=== PATIENT | female | born 1985 | race Caucasian/White ===

== ENCOUNTER 2018-05-28 15:31 | Day surgery (SDC) | payer OTHER ==
[~2018-05-28] VITALS: Ht 165.1 cm; Wt 59.0 kg
--- NOTE | ~2018-05-28 | OR ---
[facility] [address] [place], [place] [address] Draft DATE OF OPERATION: 05/28/2018 SURGEON: Vale Hodges MD PREOPERATIVE DIAGNOSES: Pelvic pain, ectopic . POSTOPERATIVE DIAGNOSES: Pelvic pain, ectopic with ruptured left ovarian cyst. PROCEDURES: Laparoscopy, lysis of adhesions, drainage of left ovarian cyst, salpingostomy on the right. ANESTHESIA: General ET. ESTIMATED BLOOD LOSS: Approximately 150 mL combined with what was already present in the abdomen. DRAINS: Velásquez catheter intraoperatively. INDICATIONS AND FINDINGS: The patient is a 32-year-old female, 5, para 1, and AB 3, with an LMP of 1223, which puts her at 7 weeks 4 days, who was seen in the office with a complaint of acute onset of left lower quadrant pain. She has had some intermittent spotting during this . No real pain until today. Quant HCG was done, which was 2600. Ultrasound showed some free fluid in the abdomen and an empty uterus, though a thickened endometrium. There was absolutely no gestational sac. Because of the combination of symptoms, it was felt that she likely had an ectopic and options were discussed including use of methotrexate or proceeding with laparoscopy. At the conclusion of the discussion, she wished to proceed with laparoscopy. At the time of surgery, exam under anesthesia revealed a top-normal size uterus, which was soft. No adnexal masses were appreciated. At the time of laparoscopy, there was a moderate amount of blood in the abdomen. There were severe adhesions. The omentum was completely adherent across the anterior cul-de-sac. There was a ruptured left ovarian cyst, which appeared to be hemorrhagic. There was a tiny area of endometriosis on the left pelvic sidewall. There were adhesions of the ovary on the left to the sigmoid. There was also adhesions of the ovary on the right to the sigmoid. The ectopic PATIENT NAME: JONATHAN PATTON OPERATIVE REPORT DATE OF : 85 REPORT #: [id number] PHYSICIAN: VALE HODGES MD PCP: TOMAS CORONADO MD REPORT IS CONFIDENTIAL AND NOT TO BE RELEASED WITHOUT AUTHORIZATION [facility] [address] [place], [place] [address] Draft appeared to be in the distal half of the right tube. Both tubes appeared to have blunting. PROCEDURE IN DETAIL: The patient was prepped and draped in the dorsal lithotomy position. An open-sided speculum was placed. The anterior lip of the cervix was visualized and grasped with a single-tooth tenaculum. A Mitali cannula was then placed and the speculum removed. Attention was directed above. The infraumbilical area was injected with 0.5% Marcaine plain. An incision was made with a knife and then each layer was serially elevated and incised until the fascia was opened and identified. The peritoneum was opened bluntly. The Yumiko cannula was then placed and tied into place after inflating the balloon. Placement of the scope confirmed proper positioning. CO2 was then introduced into the abdomen. The bleeding and the adhesions were immediately noted. Secondary ports were placed slightly inferior to the umbilicus laterally. Each of these areas were transilluminated, injected with the Marcaine. Incision made with a knife and the trocars placed under direct vision. Initially, the adhesions were taken down anteriorly and this was done using a LigaSure [place] device. This allowed the omentum to come off the anterior pelvis and allow for further evaluation of the actual pelvis. The patient's left ovary was identified. There was evidence of a ruptured cyst on its surface. The tube on the patient's left was kinked and blunted, but it otherwise appeared fairly normal. The pelvis was thoroughly irrigated and the blood removed as much as possible. Attention was then directed to the patient's right side and the adhesions of the bowel to the tube and ovary were identified and these were incised using scissors without any cautery given the proximity of the bowel. This allowed the bowel to come off the ovary and the tube. At that point, it could be seen that the distal half of the patient's right tube was edematous and swollen and purple with likely retained products. As this was grasped and elevated into view, large amount of tissue and bleeding was extruded through the end. This tissue could not be separately grasped and removed. The fimbriated end was then incised using the spatula tip cautery as well as the scissors with cautery and the tube irrigated. Following this, the tube itself appeared to be fairly normal, though it was still blunted and adherent to the ovary. There were few adhesions in the posterior cul-de-sac, but these were not lysed at this time. The cyst on the patient's left ovary was drained further and the base treated with cautery to aid in hemostasis. The abdomen was then copiously irrigated and inspected and there did not appear to be any evidence of active bleeding, but the surface of the left ovary was broth. Following this, Evicel was doubled over the left ovary as well as the site of the right salpingostomy. Preparations were then made for closure. The instruments were removed from the abdomen after allowing as much CO2 as possible to escape. The fascia was re-identified and closed with a running suture of 0 Vicryl. Stay sutures were tied as well. The skin incisions were closed with subcuticular sutures of 3-0 Vicryl Rapide. The remaining Evicel was used on the incisions in the subcu portion. The instruments were removed from the vagina and the PATIENT NAME: JONATHAN PATTON OPERATIVE REPORT DATE OF : 85 REPORT #: [id number] PHYSICIAN: VALE HODGES MD PCP: TOMAS CORONADO MD REPORT IS CONFIDENTIAL AND NOT TO BE RELEASED WITHOUT AUTHORIZATION [facility] [address] [facility] [place], [place] [address] Draft cervix was visualized and there was no evidence of ongoing bleeding. The Velásquez catheter was also removed at the end of surgery. All sponge and needle counts were correct. She tolerated the procedure well and was taken to the recovery room in good condition. Vale Hodges MD PJW/MODL /[id number] Copies: ~ PATIENT NAME: JONATHAN PATTON OPERATIVE REPORT DATE OF : 85 REPORT #: [id number] PHYSICIAN: VALE HODGES MD PCP: TOMAS CORONADO MD REPORT IS CONFIDENTIAL AND NOT TO BE RELEASED WITHOUT AUTHORIZATION
[~2018-05-28 15:31] MED LIST: PRENATAL TABLE1 EAC1 PO
[2018-05-28] MEDS ORDERED: PROGESTERONE200 MG PO (15:52)
--- NOTE | 2018-05-28 18:40 | NUR ---
05/28/18 184 Crescencio Moran 1826 PT ARRIVED TO PACU, AWAKENS TO VOICE. PT DENIES PAIN AND NAUSEA. 02 VIA MASK AT 10L. VITALS STABLE. REPORT RECV'D FROM FABIO BURRIS. WILL CONTINUE TO MONITOR. 183 PT RESTING. VITALS STABLE. DENIES PAIN AND NAUSEA. BEAR HUGGER AND WARM BLANKETS IN PLACE.
--- NOTE | 2018-05-28 19:10 | NUR ---
PT ARRIVED TO ROOM 103 VIA STRETCHER, TRANSFERED TO BED, REPORT RECEIVED FROM GERDA RN, PT ALERT AND ORIENTED, IV PATENT, SITE INTACT, INFUSING AT TKO, PT DENIES N/V OR NEED FOR ADDITIONAL PAIN MED, BANDAIDES TO ABDOMINAL SCOPE SITES WITH MINIMAL DRAINAGE, SCANT MEDIUM RED VAGINAL DRAINAGE, FAMILY AT BEDSIDE AND SUPPORTIVE.
--- NOTE | 2018-05-28 19:50 | NUR ---
PT TOLERATING PO AT THIS TIME WITHOUT N/V, IVF STOPPED AND CHANGED TO SL, SITE FLUSES WELL. PT DESIRES TO EMPTY BLADDER, ASSISTED UP TO BR TO VOID, VOIDED 200ML, LIGHT VAGINAL BLEEDING NOTED, PERICARE DONE, SOME REPORTED DIZZINESS WITH INITAL STANDING AND AMBULATING, RN AND AT SIDE, BACK TO BED, DR SOLANO INTO DISCUSS SURGICAL FINDINGS AND TO ANSWER PT AND FAMILY QUESTIONS.
--- NOTE | 2018-05-28 20:15 | NUR ---
DISCHARGE PRESCRIPTIONS GIVEN TO FAMILY TO FILL TONIGHT BEFORE RETAIL PHARMACY CLOSES, IN ANTICIPATION OF POSSIBLE DISCHARGE TONIGHT.
--- NOTE | 2018-05-28 21:01 | NUR ---
PT ASSISTED UP TO BR TO VOID, VOIDED 400ML VAGINAL BLEEDING REMAINS LIGHT, PT DENIES DIZZINESS WITH AMBULATION, BACK TO BED, SCDS PLACED ON PT .
--- NOTE | 2018-05-28 21:01 | NUR ---
PT REQUESTING PAIN MED FOR ABDOMINAL PAIN 5/10, WITH LEFT SIDE OF ABDOMINAL PAIN WORSE THAN THE RIGHT, SCOPE BANDAIDES REMAIN WITH SCANT OLD DRAINAGE, VAGINAL DRAINAGE LIGHT. PT MEDICATED WITH PERCOCET 1 TABLET, PT TOLERATING PO AND CRACKERS.
--- NOTE | 2018-05-28 22:30 | NUR ---
PT REQUESTING ADDITIONAL PAIN MED, RT MOTRIN GIVEN ALSO AN ADDITIONAL PERCOCET GIVEN FOR ABDOMINAL PAIN, BANDAIDES AT SCOPE SITES AND VAGINAL BLEEDING REMAINS UNCHANGED. PT UP TO BR TO VOID, GAIT STEADY WITHOUT C/O DIZZINESS. BACK TO BED, REQUEST SOUP, GIVEN WITH CRACKERS, RESTING AT BEDSIDE.
--- NOTE | 2018-05-28 22:50 | NUR ---
PT REPORTS SHE WOULD LIKE TO STAY THE NIGHT AT HOSPITAL. STATES SHE WOULD FEEL MORE COMFORTABLE BEING MONITORED OVER NIGHT. SUPPORT GIVEN.
--- NOTE | 2018-05-29 00:05 | NUR ---
VS STABLE, ASSESSMENT WNL, BANDAIDS WITH NO FURTHER DRAINAGE, SCDS IN PLACE, PT ABLE TO EAT ABOUT HALF OF HER CHICKEN NOODLE SOUP, NO N/V.
--- NOTE | 2018-05-29 01:49 | NUR ---
RN CALLED TO ROOM TO ASSIST GETTING UP TO GO TO BR, PT REQUESTING PAIN MED, MEDICATED PER ORDER WITH 2 PERCOCET FOR ABDOMINAL PAIN /, GAIT STEADY, VOIDED 900ML, VAGINAL BLEEDING LIGHT, BACK TO BED, WITHOUT FURTHER REQUEST.
--- NOTE | 2018-05-29 04:02 | NUR ---
Pt up to bathroom to void 1000ml. Scant amt of vag bleeding noted on pad. VS done. Pt back to bed and SCD replaced. Fresh water given. Denies need of any pain meds at this time. Pt states that she will try to get more sleep.
--- NOTE | 2018-05-29 06:23 | NUR ---
PT RESTING QUIETLY, AWAKE, REQUESTING PAIN MED, MED WITH 2 PERCOCET AND RT MOTRIN, FOR PAIN 4/10, UP TO BR TO VOID, GAIT STEADY
--- NOTE | 2018-05-29 07:23 | NUR ---
Pt sleeping in no apparent distress. Advised to have her call me when she awakens.
--- NOTE | 2018-05-29 07:52 | NUR ---
pt denies pain at this time. SL dc'd from rt AC. Cath intact. No s/s of infection noted. Pressure applied. Incisional wounds covered with bandages. small amount of old, dried blood noted. No active bleeding noted. No vaginal bleeding noted. Pt. states that she is voiding without difficulty. She is prepared to get up and ready for dc. Pt does not wish to order brkfast before leaving.
== END 2018-05-29 08:30 | disposition home or self-care (01) ==
LOC: DS 15:31 → FBC 19:10 → DS 05-29 08:30
PROVIDERS: Obstetrics & Gynecology
PROC: 0U914ZZ Drainage of Left Ovary, Percutaneous Endoscopic Approach (ICD-10-PCS; 2018-05-28)
PROC: 10T24ZZ Resection of Products of Conception, Ectopic, Percutaneous Endoscopic Approach (ICD-10-PCS; principal; 2018-05-28 16:30)
DX: O00.101 Right tubal pregnancy without intrauterine pregnancy (principal); N83.202 Unspecified ovarian cyst, left side; Z88.0 Allergy status to penicillin; Z79.899 Other long term (current) drug therapy
CPT/HCPCS: 00840; 80053; 85025; J0330; J1100; J1885; J2250; J2405; J2704; J2765; J3010; J7120

== ENCOUNTER 2019-10-15 15:29 | Inpatient (IN) | payer OTHER ==
[~2019-10-15] VITALS: Ht 165.1 cm; Wt 73.0 kg
--- NOTE | ~2019-10-15 | OR ---
[facility] [address] [place], [place] [address] Draft DATE OF OPERATION: 10/16/2019 SURGEON: Vale Hodges MD PREOPERATIVE DIAGNOSIS: hemorrhage. POSTOPERATIVE DIAGNOSES: hemorrhage, uterine atony. PROCEDURE: Exam under anesthesia, dilation and curettage, attempted Bakri placement. ANESTHESIA: Epidural with IV sedation. ESTIMATED BLOOD LOSS: 300 mL in the OR. DRAINS: Velásquez catheter. INDICATIONS AND FINDINGS: The patient is a 34-year-old female, 6, para 1, SAB 3, ectopic 1, who was delivered at 40 weeks this afternoon with delivery of a little boy with Apgars of 8 and 9 and weight of 8 pounds 9 ounces. There was a moderate shoulder dystocia. However after delivery and repair of the laceration, she had continued bleeding, which did not respond to multiple uterotonics. At that point, it was felt that she needed to undergo further treatment. At the time of her surgery, the D and C revealed a tiny fragment of possible placental tissue. No other causes for the bleeding were found. DESCRIPTION OF PROCEDURE: The patient was prepped and draped in the dorsal lithotomy position. The vagina was carefully evaluated and there was no evidence of any missed lacerations. The cervix was carefully evaluated as well and there was no evidence of any lacerations of the cervix. The anterior lip of the cervix was visualized and grasped with a ring forceps. A banjo curette was then introduced into the uterus and the uterus curetted with the finding of a single small focus of possible placental type tissue. At this point, she was bleeding even more. The D and C was abandoned and the decision was made to try to place the Bakri balloon. This was grasped with ring forceps at the tip and attempted to be PATIENT NAME: JONATHAN PATTON OPERATIVE REPORT DATE OF : 85 REPORT #: [id number] PHYSICIAN: VALE HODGES MD PCP: TOMAS CORONADO MD REPORT IS CONFIDENTIAL AND NOT TO BE RELEASED WITHOUT AUTHORIZATION [facility] [address] [place] [id number] Draft introduced into the uterus, but it could not be successfully introduced into the upper portion of the fundus. This was attempted several times without success. However, after abandoning this attempt, observation of her bleeding showed that it had significantly diminished. Her uterus was nice and firm. The bleeding was observed over approximately 10 minutes without any increase. It was felt that she was now stable and that the Bakri balloon was not needed at this point. Following this, the patient was taken to the recovery room in good condition. Vale Hodges MD PJW/MODL /[id number] cc: Dr. Sanchez Copies: ~ PATIENT NAME: JONATHAN PATTON OPERATIVE REPORT DATE OF : 85 REPORT #: [id number] PHYSICIAN: VALE HODGES MD PCP: TOMAS CORONADO MD REPORT IS CONFIDENTIAL AND NOT TO BE RELEASED WITHOUT AUTHORIZATION
[~2019-10-15 15:29] MED LIST changes: +PROGESTERONE200 MG PO
--- NOTE | 2019-10-16 15:17 | NUR ---
10/16/19 1517 Mariah Cho 1407 PATIENT ARRIVES TO PACU AWAKE, FOLLOWING COMMANDS AND ANSWERING QUESTIONS APPROPRIATELY. RESP EVEN AND UNLABORED, MASK AT 6 LITERS. PATIENT DENIES PAIN/NAUSEA. PATIENT IS VERY ANXIOUS AND TEARFUL. PATIENT HAS A FEVER, BUT HAD 5 BLANKETS ON AND A BEAR HUGGER. PATIENT HAD BEEN SHAKING DURING THE PROCEDURE. 1410 PATIENT AWAKE. OXYGEN OFF. ROOM AIR SATS >97%. CONTINUES TO DENY PAIN OR NAUSEA. FUNDUS AT UMBILICUS, FIRM, AND MIDLINE. SMALL AMOUNT OF VAGINAL BLEEDING NOTED. 1415 DR SOLANO AT BEDSIDE. FUNDAL CHECK DONE. AGREES WITH PLACEMENT AND BLEEDING IS ACCEPTABLE AT THIS TIME. 1420 PATIENT AWAKE, WANTING TO SEE FAMILY. RESP EVEN AND UNLABORED. ROOM AIR SATS >97%. DENIES PAIN OR NAUSEA. FUNDUS MIDLINE AT UMBILICUS WITH SMALL AMOUNT OF BLEEDING. WILL RETURN TO [facility].
--- NOTE | 2019-10-17 08:26 | PR ---
[facility] [address] [facility] [place], [place] [address] Signed PP Progress Notes Datetime Report Generated by SANDY: 10/17/2019 08:26 SUBJECTIVE: [id number] Pain: Within normal limits Nausea/Vomiting: Denies Vital Signs: [id number] Vital Signs: Reviewed; Within Normal Limits EXAM: [id number] Cardiovascular: Not Done Respiratory: Not Done Abdomen/Uterus: Abnormal Lochia: Normal Vulva/Perineum: Not Done Breasts: Not Done CVA Tenderness: Not Done Extremities: Normal Incision: Not Applicable Progress: Normal Exam Comments: Fundus firm, NT @ U-1. 10/16/2019 H/H 7.3/20.8, WBC 9.1, plat 71k 10/17/2019 H/H 7.3/21.0, WBC 8.4, plat 63k 10/16/2019 INR 1.4 yest, fibrinogen 97 IMPRESSION/PLAN/PROCEDURES: [id number] Impression: Normal progression Other Plans: trial of ambulation, repeat labs Progress Notes: VS are stable though her H/H are very low. If she tolerates ambulation and her labs are stable, transfusion may not be needed. Will repeat labs. Signing Physician: Vale Hodges MD Copies: ~ *Electronically Signed* 10/17/19 0826 VALE HODGES MD PATIENT NAME: JONATHAN PATTON PROGRESS NOTE DATE OF : 85 PHYSICIAN: VALE HODGES MD RPT #: [id number] REPORT IS CONFIDENTIAL AND NOT TO BE RELEASED WITHOUT AUTHORIZATION
--- NOTE | 2019-10-18 09:29 | PR ---
[facility] [address] [facility] [place], [place] [address] Signed PP Progress Notes Datetime Report Generated by SANDY: 10/18/2019 09:29 SUBJECTIVE: [id number] Pain: Within normal limits Pain Comments: tolerating ambulation Nausea/Vomiting: Denies Vital Signs: [id number] Vital Signs: Reviewed; Within Normal Limits EXAM: [id number] Cardiovascular: Not Done Respiratory: Not Done Abdomen/Uterus: Abnormal Lochia: Normal Vulva/Perineum: Not Done Breasts: Not Done CVA Tenderness: Not Done Extremities: Normal Incision: Not Applicable Progress: Normal Exam Comments: Fundus firm, NT @ U-1. H/H 8/23.2, WBC 7.9, plat 78k IMPRESSION/PLAN/PROCEDURES: [id number] Impression: Normal progression Plan: Discharge Other Plans: trial of ambulation, repeat labs Procedures: Transfusion Progress Notes: Much improved. Tolerating ambulation though still quite anemic. Platelets improving though still low. I do think she is stable for D/C. Signing Physician: Vale Hodges MD Copies: ~ *Electronically Signed* 10/18/19 0929 VALE HODGES MD PATIENT NAME: JONATHAN PATTON PROGRESS NOTE DATE OF : 85 PHYSICIAN: VALE HODGES MD RPT #: [id number] REPORT IS CONFIDENTIAL AND NOT TO BE RELEASED WITHOUT AUTHORIZATION
--- NOTE | 2019-10-21 14:39 | PATH ---
[facility] [address] [place], [place] [address] Signed SPECIMEN(S): A PLACENTA SPECIMEN SOURCE: A. PLACENTA CLINICAL HISTORY: Mother's age: 34. OB history: . Gestational age: 40. 's weight: 8# 8. score: 8/9. Rh positive. Specific issues of concern: hemorrhage. FINAL PATHOLOGIC DIAGNOSIS: Placenta, membranes and umbilical cord: - membranes: - No microscopic pathologic diagnosis. - Umbilical cord: - Three vascular channels identified. - No microscopic pathologic diagnosis. - Placenta: - Third trimester placenta (reported 40 week gestation), fixed trimmed placental weight 597 grams (approximately 80th percentile for given gestational age). LJA:vlg:C2NR MICROSCOPIC EXAMINATION: Histologic sections of all submitted blocks are examined by light microscopy. These findings, together with the gross examination, support the pathologic diagnosis. GROSS DESCRIPTION: The specimen, labeled "KS, placenta," is received fresh and placed in formalin and consists of balderas discoid placenta with the following parameters: Umbilical cord: Insertion 6.5 cm from the nearest margin, measurement 38 x 1.2 cm; trivascular. Additional cord segment measure 14 x 1.2 Cord coiling index (per 10 cm): Five. Lesions: Not grossly identified. Membranes: Insertion site: Marginal, wheeler/translucent, rupture site unremarkable. Intact. Other: Not grossly identified. Chorionic Plate: Normal radiating vascular pattern, blue-purple and shiny. Lesions: Not grossly identified. Other: Not grossly identified. Maternal Surface: Normal cotyledons, intact. Lesions: Not grossly identified. Measurement: 19.5 x 18.4 x 2.1 cm. Weight (trimmed): 597 g PATIENT NAME: JONATHAN PATTON PATHOLOGY DATE OF : 85 REPORT #: [id number] PHYSICIAN: [facility] PCP: TOMAS CORONADO MD REPORT IS CONFIDENTIAL AND NOT TO BE RELEASED WITHOUT AUTHORIZATION [facility] [address] [place], [place] [address] Signed Cut Surface: Maroon and spongy. Lesions: Not grossly identified. Basal plate fibrin 0.1 cm in thickness. Other Findings: Not grossly identified. Cassette Summary: (A1) membranes and umbilical cord (A2) placenta parenchyma (A3) placenta parenchyma (A4) placenta parenchyma. JS (under the direct supervision of a pathologist) The Gross Description was prepared using a voice recognition system. The report was reviewed for accuracy; however, sound-alike word errors, addition and/or deletions may occur. If there is any question about this report, please contact Client Services. PERFORMING LABORATORY: The technical component was performed by [facility], [address] [place] [id number] (Plodding Machine Operator: Delores Gillespie MD; CLIA# [id number]). [facility], [address] [address] (CLIA# [id number]). Diagnostician: Chevy Tomas MD Pathologist Electronically Signed 10/21/2019 Copies: ~ PATIENT NAME: JONATHAN PATTON PATHOLOGY DATE OF : 85 REPORT #: [id number] PHYSICIAN: [facility] PCP: TOMAS CORONADO MD REPORT IS CONFIDENTIAL AND NOT TO BE RELEASED WITHOUT AUTHORIZATION
== END 2019-10-18 13:05 | disposition home or self-care (01) | DRG 797 ==
LOC: FBC 10-16 00:03
PROVIDERS: ADMIT Obstetrics & Gynecology
PROC: 10D17ZZ Extraction of Products of Conception, Retained, Via Natural or Artificial Opening (ICD-10-PCS; 2019-10-16)
PROC: 0KQM0ZZ Repair Perineum Muscle, Open Approach (ICD-10-PCS; 2019-10-16)
PROC: 3E0P7VZ Introduction of Hormone into Female Reproductive, Via Natural or Artificial Opening (ICD-10-PCS; 2019-10-16)
PROC: 10907ZC Drainage of Amniotic Fluid, Therapeutic from Products of Conception, Via Natural or Artificial Opening (ICD-10-PCS; 2019-10-16)
PROC: 00HU33Z Insertion of Infusion Device into Spinal Canal, Percutaneous Approach (ICD-10-PCS; 2019-10-16)
PROC: 3E0R3BZ Introduction of Anesthetic Agent into Spinal Canal, Percutaneous Approach (ICD-10-PCS; 2019-10-16)
PROC: 10E0XZZ Delivery of Products of Conception, External Approach (ICD-10-PCS; principal; 2019-10-16 12:45)
PROC: 30233N1 Transfusion of Nonautologous Red Blood Cells into Peripheral Vein, Percutaneous Approach (ICD-10-PCS; 2019-10-17)
DX: O24.420 Gestational diabetes mellitus in childbirth, diet controlled (principal); O72.1 Other immediate postpartum hemorrhage; Z37.0 Single live birth; Z3A.40 40 weeks gestation of pregnancy; O66.0 Obstructed labor due to shoulder dystocia; O70.1 Second degree perineal laceration during delivery; O69.81X0 Labor and delivery complicated by cord around neck, without compression, not applicable or unspecified; O90.81 Anemia of the puerperium; D64.9 Anemia, unspecified; Z88.0 Allergy status to penicillin
CPT/HCPCS: 00952; 01960; 36415; 80053; 85025; 85027; 85384; 85610; 85730; 86850; 86900; 86901; 86920; A9270; J0690; J2210; J2250; J2370; J2405; J2590; J2795; J3010; J7121; P9016; P9047

== ENCOUNTER 2023-11-21 15:55 | Inpatient (IN) | payer OTHER ==
[~2023-11-21] VITALS: Ht 165.1 cm; Wt 68.0 kg
[2023-11-21 17:25] LABS: HEMATOCRIT 37.9 % (35.0-50.0); MCH 31.4 (27-36); MCHC 34.2 g/dl (30-36); MCV 91.9 fl (81-99); RBC 4.13 M/ul (4.3-5.7); RDW 13.9 (10.5-15.0)
[2023-11-21] MEDS ORDERED: OXYTOCIN/DEXTROSE 5% 20 UNITS/100 ML BAG IV SCH (17:30)
[2023-11-21] MEDS ORDERED: CALCIUM CARBONATE 500 MG CHEW PO PRN ×2 (17:30→20:15)
[2023-11-21] MEDS ORDERED: MAGNESIUM HYDROXIDE/AL HYDROX 30 ML CUP PO PRN ×2 (17:30→20:15)
[2023-11-21] MEDS ORDERED: LIDOCAINE 2% VISCOUS 6 ML SYR TOP ONE ×4 (17:30→20:15)
[2023-11-21] MEDS ORDERED: LACTATED RINGER'S 1,000 ML IV PRN (17:30)
[2023-11-21 17:42] LABS: AMPHETAMINES, URINE NEGATIVE (NEGATIVE); BARBITURATES, URINE NEGATIVE (NEGATIVE); BENZODIAZEPINE, URINE NEGATIVE (NEGATIVE); BUPRENORPHINE, URINE NEGATIVE (NEGATIVE); CANNABINOID, URINE NEGATIVE (NEGATIVE); COCAINE, URINE NEGATIVE (NEGATIVE); ECSTASY, URINE NEGATIVE (NEGATIVE); FENTANYL, URINE NEGATIVE (NEGATIVE); METHADONE, URINE NEGATIVE (NEGATIVE); OPIATES, URINE NEGATIVE (NEGATIVE); OXYCODONE, URINE NEGATIVE (NEGATIVE); PHENCYCLIDINE, URINE NEGATIVE (NEGATIVE)
[2023-11-21] MEDS ORDERED: ROPIVACAINE 0.2% 200 ML BAG ONE (17:42)
[2023-11-21] MEDS ORDERED: fentaNYL citrate 100 MCG/2 ML VIAL ONE ×2 (17:42→18:39)
[2023-11-21 17:53] LABS: ABO A; RH POSITIVE
[2023-11-21 17:54] LABS: ANTIBODY SCREEN NEGATIVE
[2023-11-21] MEDS ORDERED: LIDOCAINE 2% W/ EPI 1:100,000 20 ML VIAL ONE (18:07)
[2023-11-21] MEDS ORDERED: LIDOCAINE 2% W/ EPI 1:200,000 20 ML SDV ONE (18:08)
[2023-11-21] MEDS ORDERED: LACTATED RINGER'S 500 ML IV PRN (19:00)
[2023-11-21] MEDS ORDERED: LACTATED RINGER'S 2,000 ML IV ONE (19:00)
[2023-11-21] MEDS ORDERED: ROPIVACAINE 0.2% 200 ML BAG EPIDURAL SCH (19:00)
[2023-11-21] MEDS ORDERED: ePHEDrine sulfate 5 MG/ML SYRINGE IV PRN (19:00)
[2023-11-21] MEDS ORDERED: TRANEXAMIC ACID IN NACL,ISO-OS 100 ML IV ONE (19:36)
[2023-11-21] MEDS ORDERED: OXYTOCIN/0.9 % SODIUM CHLORIDE 500 ML IV ONE (19:36)
[2023-11-21] MEDS ORDERED: OXYTOCIN/0.9 % SODIUM CHLORIDE 500 ML IV SCH (20:15)
[2023-11-21] MEDS ORDERED: HYDROCORTISONE ACETATE 25 MG SUPP PR PRN (20:15)
[2023-11-21] MEDS ORDERED: MAGNESIUM HYDROXIDE 30 ML UDC PO PRN (20:15)
[2023-11-21] MEDS ORDERED: WITCH HAZEL/GLYCERIN 1 EA PAD TOP PRN (20:15)
[2023-11-21] MEDS ORDERED: HYDROCODONE/ACETA 5/325 TAB PO PRN (20:15)
[2023-11-21] MEDS ORDERED: ACETAMINOPHEN 325 MG TAB PO PRN (20:15)
[2023-11-21] MEDS ORDERED: IBUPROFEN 600 MG TAB PO PRN (20:15)
[2023-11-21] MEDS ORDERED: BENZOCAINE 60 ML AEROSOL TOP PRN (20:15)
[2023-11-21] MEDS ORDERED: SENNOSIDES/DOCUSATE 1 EA TAB PO SCH (21:00)
[2023-11-22] MEDS ORDERED: miSOPROStoL 25 MCG TAB PV SCH
[2023-11-22] MEDS ORDERED: CALCIUM CARBONATE 500 MG CHEW PO PRN
[2023-11-22] MEDS ORDERED: LACTATED RINGER'S 1,000 ML IV SCH
[2023-11-22] MEDS ORDERED: MAGNESIUM HYDROXIDE/AL HYDROX 30 ML CUP PO PRN
[2023-11-22 05:35] LABS: HEMOGLOBIN 11.3 g/dL (12.0-18.0); MCH 31.4 (27-36); MCHC 34.3 g/dl (30-36); MCV 91.4 fl (81-99); RBC 3.61 M/ul (4.3-5.7); RDW 13.5 (10.5-15.0)
--- NOTE | 2023-11-22 07:10 | PR ---
[facility] [address] [facility] [place] [address] Signed PP Progress Notes Datetime Report Generated by CPMonica: 11/22/2023 07:10 SUBJECTIVE: [id number] Pain: Within Normal Limits Nausea/Vomiting: Denies Vital Signs: [id number] Vital Signs: Reviewed; Within Normal Limits Cardiovascular: Not Done Respiratory: Not Done Abdomen/Uterus: Abnormal Lochia: Normal Vulva/Perineum: Not Done Incision: Not Applicable Progress: Abnormal Exam Comments: Fundus firm, NT @ U-1 H/H 11.3/33.0, WBC 11.8, plat 124k IMPRESSION/PLAN/PROCEDURES: [id number] Impression: Normal Progression Plan: Discharge Procedures: None Progress Notes: Doing well though understandably upset over baby's condition. Will D/C today. Signing Physician: Vale Hodges MD Copies: ~ *Electronically Signed* 11/22/23 0710 VALE HODGES MD PATIENT NAME: JONATHAN PATTON PROGRESS NOTE DATE OF : 85 PHYSICIAN: VALE HODGES MD RPT #: [id number] REPORT IS CONFIDENTIAL AND NOT TO BE RELEASED WITHOUT AUTHORIZATION
[2023-11-22 08:50] VITALS: BP 123/59
[2023-11-22 10:28] LABS: INFLUENZA B NAA NEGATIVE (NEGATIVE); RESPIRATORY SYNCYTIAL VIR NAA NEGATIVE (NEGATIVE)
== END 2023-11-22 10:47 | disposition home or self-care (01) | DRG 807 ==
LOC: FBCO 15:55 → FBC 17:01
PROVIDERS: ADMIT Obstetrics & Gynecology; ATTEND Obstetrics & Gynecology
PROC: 10E0XZZ Delivery of Products of Conception, External Approach (ICD-10-PCS; principal; 2023-11-21)
PROC: 0KQM0ZZ Repair Perineum Muscle, Open Approach (ICD-10-PCS; 2023-11-21)
PROC: 3E0R3BZ Introduction of Anesthetic Agent into Spinal Canal, Percutaneous Approach (ICD-10-PCS; 2023-11-21)
PROC: 00HU33Z Insertion of Infusion Device into Spinal Canal, Percutaneous Approach (ICD-10-PCS; 2023-11-21)
DX: O24.420 Gestational diabetes mellitus in childbirth, diet controlled (principal); Z37.0 Single live birth; O70.1 Second degree perineal laceration during delivery; Z3A.39 39 weeks gestation of pregnancy
CPT/HCPCS: 01960; 36415; 59025; 80307; 85027; 86850; 86900; 86901; 87502; A9270; G0463; J2590; J2795; J3010; J7121; U0002